=== PATIENT | male | born 1980 | race Caucasian/White ===

== ENCOUNTER 2019-06-08 21:14 | Day surgery (SDC) | payer SELFPAY ==
[2019-06-08] MEDS ORDERED: Ondansetron PF 4 MG/2 ML Vial ONE (21:41)
[2019-06-08 22:13] LABS: #Eosinphils 0.3 thou/uL (0.0-0.7); #Lymphocytes 1.9 thou/uL (1.20-3.40); #Monocytes 0.8 thou/uL (0.11-0.59); #Neutrophils 3.9 thou/uL (1.40-6.50); %Basophils 0.4 % (0.0-1.0); %Eosinophils 3.9 % (0.0-10.0); %Lymphocytes 27.2 % (21.0-51.0); %Monocytes 11.5 % (0.0-10.0); %Neutrophils 56.9 % (42.0-75.0); Mean Corpuscular HGB CONC 34.6 g/dL (32.0-36.0); Mean Corpuscular Hemoglobin 31.7 pg (27.0-31.0); Mean Corpuscular Volume 91.6 fL (78.0-98.0); Mean Platelet Volume 9.2 fL (7.4-10.4); Platelet Count 237 thou/uL (130-400); RBC Distribution Width 11.7 % (11.5-14.5); White Blood Cell (WBC) Count 6.8 thou/uL (4.8-10.8)
[2019-06-08 22:31] LABS: Anion Gap 13 mmol/L (10-20); BUN (Urea Nitrogen) 7 mg/dL (8.9-20.6); Calc. Creatinine Clearance 0 mL/min (70-130); Calcium 8.7 mg/dL (7.8-10.44); Carbon Dioxide 22 mmol/L (22-29); Chloride 110 mmol/L (98-107); Estimated GFR-MDRD Greater than 90; Glucose 97 mg/dL (70-105); Lipase 28 U/L (8-78); Potassium 3.8 mmol/L (3.5-5.1); Sodium 141 mmol/L (136-145)
[2019-06-08 22:58] LABS: ALT (SGPT) 20 U/L (8-55); AST (SGOT) 14 U/L (5-34); Alkaline Phosphatase 89 U/L (40-110); Bilirubin, Direct 0.2 mg/dL (0.1-0.3); Bilirubin, Total 0.3 mg/dL (0.2-1.2); Protein, Total 6.4 g/dL (6.0-8.3)
--- NOTE | 2019-06-08 23:18 | RAD ---
PORTABLE CHEST: 06/08/19 PROVIDED CLINICAL HISTORY: Evidence for esophageal foreign body. FINDINGS: Cardiac and mediastinal silhouette is within normal limits. Lungs appear clear. No pleural fluid or p neumothorax apparent. No radiopaque foreign body is evident overlying the visualized course of the ae rodigestive tract. IMPRESSION: No evidence for an acute cardiopulmonary process. POS: CRISTAL
--- NOTE | 2019-06-08 23:20 | RAD ---
TWO VIEWS SOFT TISSUE NECK: 06/08/19 PROVIDED CLINICAL HISTORY: Evidence for esophageal obstruction. FINDINGS: The epiglottis and aryepiglottic folds appear normal. There is no prevertebral soft tissue swelling. There is no radiographic apparent foreign body overlying the visualized course of the aerodigestive t ract. The osseous structures appear unremarkable. IMPRESSION: No evidence for an acute process. POS: CRISTAL
[2019-06-09] MEDS ORDERED: Fentanyl 100 MCG/2 ML VIAL ONE (00:52)
[2019-06-09] MEDS ORDERED: Labetalol HCl 100 MG/20 ML VIAL ONE (01:18)
--- NOTE | 2019-06-09 01:29 | CON ---
DATE OF CONSULTATION: 06/09/2019 REASON FOR CONSULTATION: Esophageal food bolus. HISTORY OF PRESENT ILLNESS: Mario Rushing is a 38-year-old man who reports no past medical or surgical history, takes no medications, and has no chronic symptomatology. He says that for the past couple of days, he has had dysphagia to solids, to the point that he is unable to tolerate any oral intake for 2 days. Any solid or liquid that he takes will be regurgitated back up. He has a constant discomfort in the chest associated with this. The last thing he was really able to get down was some steak. In the ER, he was unresponsive to a trial of glucagon. He says this has never really happened before. He denies any family history of GI malignancy. He has no other symptoms such as fever or cough. REVIEW OF SYSTEMS: Full review of systems including constitutional, head, eyes, ears, nose, throat, GI, , cardiovascular, respiratory, musculoskeletal, neurologic systems is negative except as noted in the HPI. PAST MEDICAL HISTORY: None. PAST SURGICAL HISTORY: None. ALLERGIES: NO KNOWN DRUG ALLERGIES. OUTPATIENT MEDICATIONS: None. FAMILY HISTORY: Negative for GI malignancy. SOCIAL HISTORY: He will drink alcohol occasionally. He denies any smoking or drug use. He lives here in [place]. PHYSICAL EXAMINATION: VITAL SIGNS: Blood pressure 146/104, pulse 80. GENERAL: A 38-year-old man, sitting up in bed comfortably, in no acute distress. SKIN: No jaundice. No rashes were palpable. He has several tattoos. EYES: No scleral icterus. Extraocular movements intact. ENT: Mucous membranes moist. No oral lesions. LYMPH: No submandibular or supraclavicular lymphadenopathy. NECK: Thyroid nontender to palpation. HEART: Regular rate and rhythm. LUNGS: Clear to auscultation bilaterally. ABDOMEN: Soft, nontender to palpation throughout. EXTREMITIES: No peripheral edema. VESSELS: Radial pulses 2+ bilaterally. NEURO: Cranial nerves 2 through 12 intact bilaterally. No focal deficits. LABORATORY STUDIES: None. ASSESSMENT AND PLAN: Suspected esophageal foreign body obstruction. This has been going on for the past couple of days, with no preceding symptoms of dysphagia or heartburn to be noted. I discussed in detail with the patient that we need to proceed with esophagogastroduodenoscopy urgently this evening to relieve the obstruction and also assess any underlying pathology such as esophageal stricture, esophageal ring, esophagitis, rule out neoplastic process. Depending on findings, we may attempt esophageal biopsies, would less likely perform esophageal dilation in the context of an acute food impaction. He may require acid suppression afterward, but I suspect he will likely be able to be discharged home following the procedure. The patient understands and agrees with the plan. Job ID: [id number]
--- NOTE | 2019-06-09 01:55 | OP ---
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 PROCEDURE PERFORMED: Esophagogastroduodenoscopy with foreign body removal and biopsies. INDICATION: Esophageal food bolus impaction. MEDICATIONS: See Anesthesia record. FINDINGS: After discussion of the risks, benefits, and alternatives of the procedure, informed consent was obtained and witnessed. Pre-endoscopic cardiopulmonary examination was satisfactory. Time-out was performed before sedation was achieved. Sedation was achieved with Anesthesia assistance in the endoscopy unit. The patient was endotracheally intubated under general anesthesia. He was placed in the left lateral decubitus position. A Pentax adult upper endoscope was placed into the oropharynx and passed through the cricopharyngeus under direct visualization. In the distal esophagus, there was a large amount of food impacted. This was all meat, appearing to represent steak. I used the rat-tooth forceps to remove all of the meat from the esophagus in piecemeal fashion. In this manner, the entire esophagus was cleared of food contents. Examination of the esophagus demonstrated diffuse edema and friability, small caliber esophagus, with circumferential folds, all suggestive of eosinophilic esophagitis. There was no discrete stricture, though there was significant inflammation and maceration in the very distal esophagus just above the GE junction at 43 cm. I obtained biopsies from the midesophagus to evaluate for possible eosinophilic esophagitis. I did not perform any esophageal dilation. The endoscope was advanced into the stomach. Forward and retroflexed views of the entire gastric mucosa were obtained. There was some retained food in the gastric fundus, but the gastric mucosa otherwise appears normal, just a bit of mild erythema in the gastric antrum. The endoscope was advanced through the pylorus and into the first and second portions of the duodenum, which appeared normal. The upper endoscope was completely withdrawn and the patient allowed to recover. The patient tolerated the procedure well. There were no immediate postprocedure complications. IMPRESSION: 1. Meat bolus in the distal esophagus, completely removed. 2. Diffuse esophageal edema, friability, and small caliber esophagus with circumferential folds, all suggestive of eosinophilic esophagitis, with mid esophageal biopsies obtained. 3. Otherwise normal esophagogastroduodenoscopy. RECOMMENDATIONS: 1. Clear liquid diet for 2 days, then advance diet slowly as tolerated. 2. Chew food thoroughly. 3. Pantoprazole 40 mg p.o. b.i.d. Prescription given to the patient. 4. Follow up results of esophageal biopsies. 5. Follow up in [facility] for a telehealth visit in a couple of weeks. Job ID: [id number]
[2019-06-09] MEDS ORDERED: PROPOFOL 200 MG/20 ML VIAL ONE (11:51)
[2019-06-09] MEDS ORDERED: Succinylcholine Chloride 20 MG/ML 10 ml SYRINGE FS ONE (11:51)
[2019-06-09] MEDS ORDERED: diphenhydrAMINE 50 MG/ML VIAL ONE (11:51)
[2019-06-09] MEDS ORDERED: Ondansetron PF 4 MG/2 ML Vial ONE (11:51)
[2019-06-09] MEDS ORDERED: Dexamethasone 20 MG/5 ML VIAL ONE (11:51)
== END 2019-06-09 02:28 | disposition home or self-care (01) ==
LOC: ERS 21:14 → SDC/OP 06-09 00:38
PROVIDERS: ATTEND Internal Medicine
PROC: 0DB28ZX Excision of Middle Esophagus, Via Natural or Artificial Opening Endoscopic, Diagnostic (ICD-10-PCS; principal; 2019-06-09)
PROC: 0DC38ZZ Extirpation of Matter from Lower Esophagus, Via Natural or Artificial Opening Endoscopic (ICD-10-PCS; principal; 2019-06-09)
DX: T18.128A Food in esophagus causing other injury, initial encounter (principal); K20.8 Other esophagitis
CPT/HCPCS: 70360; 71045; 80048; 80076; 83690; 85025; 88305; 88312; 88313; 96361; 96374; 96375; J1100; J1200; J1610; J2405; J2704; J3010

== ENCOUNTER 2020-06-15 16:13 | Emergency (ER) | payer SELFPAY | END 2020-06-15 16:50 | disposition home or self-care (01) | LOC: ERS 16:13 | DX: K02.9 Dental caries, unspecified (principal); K03.81 Cracked tooth | CPT/HCPCS: 99283 ==

== ENCOUNTER 2020-06-22 18:24 | Emergency (ER) | payer SELFPAY ==
[2020-06-22 19:03] LABS: #Basophils 0.1 thou/uL (0.0-0.2); #Eosinphils 0.2 thou/uL (0.0-0.7); #Lymphocytes 2.2 thou/uL (1.20-3.40); #Monocytes 0.7 thou/uL (0.11-0.59); #Neutrophils 4.3 thou/uL (1.40-6.50); %Basophils 1.6 % (0.0-1.0); %Eosinophils 3.3 % (0.0-10.0); %Lymphocytes 29.5 % (21.0-51.0); %Neutrophils 56.6 % (42.0-75.0); Hemoglobin 15.1 g/dL (14.0-18.0); Mean Corpuscular HGB CONC 33.5 g/dL (32.0-36.0); Mean Corpuscular Hemoglobin 31.5 pg (27.0-31.0); Mean Platelet Volume 8.4 fL (7.4-10.4); Platelet Count 232 thou/uL (130-400); RBC Distribution Width 13.3 % (11.5-14.5); White Blood Cell (WBC) Count 7.6 thou/uL (4.8-10.8)
[2020-06-22 19:05] LABS: Bacteria/HPF None Seen HPF (None Seen); Bilirubin Negative (Negative); Blood, Urine 1+ (Negative); Clarity Clear (Clear); Glucose, Urine (Dipstick) Normal (Negative); Ketone, Urine Negative (Negative); Leukocyte Negative Leu/uL (Negative); Nitrite Negative (Negative); Protein, Urine (Dipstick) Negative (Neg-Trace); Specific Gravity, Urine 1.007 (1.002-1.036); Squamous Epithelial None Seen HPF (0-3); Urobilinogen Normal mg/dL (Less than 2); WBC/HPF 0-3 HPF (0-3); pH, Urine 5.5 (5.0-9.0)
[2020-06-22 19:41] LABS: ALT (SGPT) 48 U/L (8-55); AST (SGOT) 38 U/L (5-34); Albumin 4.1 g/dL (3.5-5.0); Alkaline Phosphatase 84 U/L (40-110); Anion Gap 18 mmol/L (10-20); BUN (Urea Nitrogen) 11 mg/dL (8.9-20.6); Bilirubin, Total 0.3 mg/dL (0.2-1.2); Calc. Creatinine Clearance 0 mL/min (70-130); Calcium 9.7 mg/dL (7.8-10.44); Carbon Dioxide 19 mmol/L (22-29); Chloride 107 mmol/L (98-107); Globulin 3.4 g/dL (2.4-3.5); Glucose 98 mg/dL (70-105); Potassium 4.5 mmol/L (3.5-5.1); Protein, Total 7.5 g/dL (6.0-8.3); Sodium 139 mmol/L (136-145)
[2020-06-22] MEDS ORDERED: cefTRIAXone\\ROCEPHIN 500 MG VIAL ONE (21:13)
[2020-06-22] MEDS ORDERED: Lidocaine 1% PF 5 ML VIAL ONE (21:13)
== END 2020-06-22 21:40 | disposition home or self-care (01) ==
LOC: ERS 18:24
DX: E86.0 Dehydration (principal); Z20.2 Contact with and (suspected) exposure to infections with a predominantly sexual mode of transmission; I10 Essential (primary) hypertension; F17.220 Nicotine dependence, chewing tobacco, uncomplicated
CPT/HCPCS: 36415; 80053; 81003; 81015; 82550; 85025; 96372; 99284; J0696

== ENCOUNTER 2020-08-07 02:37 | Emergency (ER) | payer SELFPAY | END 2020-08-07 05:36 | disposition home or self-care (01) | LOC: ERS 02:37 | DX: R05 Cough (principal); I10 Essential (primary) hypertension; F17.220 Nicotine dependence, chewing tobacco, uncomplicated | CPT/HCPCS: 71045 ==

== ENCOUNTER 2020-11-03 10:01 | Emergency (ER) | payer SELFPAY ==
[2020-11-03 19:54] LABS: SARS-CoV-2 PCR by NAA Not Detected (NotDetected)
== END 2020-11-03 10:40 | disposition home or self-care (01) ==
LOC: ERS 10:01
DX: Z20.822 Contact with and (suspected) exposure to COVID-19 (principal)
CPT/HCPCS: 99283; U0003; U0005

== ENCOUNTER 2021-01-02 15:04 | Emergency (ER) | payer BC, SELFPAY ==
[2021-01-02 15:55] LABS: #Eosinphils 0.1 thou/uL (0.0-0.7); #Lymphocytes 0.8 thou/uL (1.20-3.40); #Monocytes 0.5 thou/uL (0.11-0.59); #Neutrophils 5.3 thou/uL (1.40-6.50); %Basophils 0.3 % (0.0-1.0); %Eosinophils 0.7 % (0.0-10.0); %Lymphocytes 12.6 % (21.0-51.0); %Monocytes 6.8 % (0.0-10.0); %Neutrophils 79.6 % (42.0-75.0); Hemoglobin 16.3 g/dL (14.0-18.0); Mean Corpuscular HGB CONC 33.9 g/dL (32.0-36.0); Mean Corpuscular Hemoglobin 32.8 pg (27.0-31.0); Mean Corpuscular Volume 96.6 fL (78.0-98.0); Platelet Count 176 thou/uL (130-400); Red Blood Cell (RBC) Count 4.98 mill/uL (4.70-6.10); White Blood Cell (WBC) Count 6.7 thou/uL (4.8-10.8)
[2021-01-02 16:09] LABS: Acetaminophen Less than 6.0 mcg/mL (10.0-30.0); Alcohol Less than 10 mg/dL (Less than 10); CK (CPK) 70 U/L (30-200); Salicylate Less than 8.0 mg/dL (15.0-30.0)
[2021-01-02 16:11] LABS: ALT (SGPT) 17 U/L (8-55); AST (SGOT) 13 U/L (5-34); Albumin 4.3 g/dL (3.5-5.0); Alkaline Phosphatase 104 U/L (40-110); Anion Gap 15 mmol/L (10-20); BUN (Urea Nitrogen) 13 mg/dL (8.9-20.6); Bilirubin, Total 2.4 mg/dL (0.2-1.2); Calc. Creatinine Clearance 0 mL/min (70-130); Calcium 9.2 mg/dL (7.8-10.44); Carbon Dioxide 20 mmol/L (22-29); Chloride 105 mmol/L (98-107); Globulin 2.8 g/dL (2.4-3.5); Glucose 112 mg/dL (70-105); Potassium 3.4 mmol/L (3.5-5.1); Protein, Total 7.1 g/dL (6.0-8.3); Sodium 137 mmol/L (136-145)
[2021-01-02] MEDS ORDERED: Potassium Chloride 20 MEQ TAB ONE (16:26)
[2021-01-02 18:24] LABS: Bacteria/HPF None Seen HPF (None Seen); Bilirubin Negative (Negative); Blood, Urine Negative (Negative); Clarity Clear (Clear); Glucose, Urine (Dipstick) Normal (Negative); Ketone, Urine 20 mg/dL (Negative); Leukocyte Negative Leu/uL (Negative); Nitrite Negative (Negative); Protein, Urine (Dipstick) 30 mg/dL (Neg-Trace); RBC/HPF 0-3 HPF (0-3); Squamous Epithelial 0-3 HPF (0-3); WBC/HPF 0-3 HPF (0-3); pH, Urine 6.5 (5.0-9.0)
[2021-01-02 18:30] LABS: Amphetamine Detected (NotDetected); Barbiturates Screen Not Detected (NotDetected); Benzodiazepine Screen Not Detected (NotDetected); Cocaine Metabolite Screen Not Detected (NotDetected); Methadone Not Detected (NotDetected); Methamphetamine Detected (NotDetected); Opiate Screen Not Detected (NotDetected); Oxycodone Screen Not Detected (NotDetected); Phencyclidine (PCP) Not Detected (NotDetected); THC/Cannabinoid Screen Detected (NotDetected); Tricyclic Screen Not Detected (NotDetected)
[2021-01-02 21:57] LABS: Acetaminophen Less than 6.0 mcg/mL (10.0-30.0)
[2021-01-03] MEDS ORDERED: Acetaminophen 325 MG TAB ONE (07:18)
[2021-01-03 11:17] LABS: SARS-CoV-2 NAA Rapid Test Not Detected (NotDetected)
== END 2021-01-03 18:57 ==
LOC: ERS 15:04
DX: T50.902A Poisoning by unspecified drugs, medicaments and biological substances, intentional self-harm, initial encounter (principal); E87.6 Hypokalemia; E80.7 Disorder of bilirubin metabolism, unspecified; E87.2 Acidosis; R00.0 Tachycardia, unspecified; I10 Essential (primary) hypertension; Z20.822 Contact with and (suspected) exposure to COVID-19
CPT/HCPCS: 36415; 51701; 71045; 80053; 80143; 80306; 80307; 81003; 81015; 82248; 82550; 84439; 84443; 85025; 85379; 93005; U0002

== ENCOUNTER 2021-01-19 19:14 | Emergency (ER) | payer OTHER, SELFPAY ==
[2021-01-19 20:04] LABS: Bilirubin Negative (Negative); Blood, Urine Negative (Negative); Clarity Clear (Clear); Glucose, Urine (Dipstick) Normal (Negative); Ketone, Urine Negative (Negative); Leukocyte Negative Leu/uL (Negative); Nitrite Negative (Negative); Protein, Urine (Dipstick) Negative (Neg-Trace); Specific Gravity, Urine 1.011 (1.002-1.036); Urobilinogen Normal mg/dL (Less than 2)
[2021-01-19 20:07] LABS: #Eosinphils 0.3 thou/uL (0.0-0.7); #Lymphocytes 2.1 thou/uL (1.20-3.40); #Monocytes 0.5 thou/uL (0.11-0.59); #Neutrophils 3.6 thou/uL (1.40-6.50); %Basophils 0.6 % (0.0-1.0); %Eosinophils 4.2 % (0.0-10.0); %Lymphocytes 32.5 % (21.0-51.0); %Monocytes 7.8 % (0.0-10.0); %Neutrophils 54.9 % (42.0-75.0); Hemoglobin 15.4 g/dL (14.0-18.0); Mean Corpuscular HGB CONC 34.1 g/dL (32.0-36.0); Mean Corpuscular Hemoglobin 32.8 pg (27.0-31.0); Mean Corpuscular Volume 96.2 fL (78.0-98.0); Mean Platelet Volume 8.4 fL (7.4-10.4); Platelet Count 240 thou/uL (130-400); Red Blood Cell (RBC) Count 4.69 mill/uL (4.70-6.10); White Blood Cell (WBC) Count 6.6 thou/uL (4.8-10.8)
[2021-01-19 20:26] LABS: ALT (SGPT) 32 U/L (8-55); AST (SGOT) 13 U/L (5-34); Albumin 3.9 g/dL (3.5-5.0); Alkaline Phosphatase 86 U/L (40-110); Anion Gap 13 mmol/L (10-20); BUN (Urea Nitrogen) 10 mg/dL (8.9-20.6); Bilirubin, Total 0.4 mg/dL (0.2-1.2); Calc. Creatinine Clearance 0 mL/min (70-130); Calcium 9.6 mg/dL (7.8-10.44); Carbon Dioxide 24 mmol/L (22-29); Chloride 106 mmol/L (98-107); Globulin 3.1 g/dL (2.4-3.5); Glucose 120 mg/dL (70-105); Lipase 32 U/L (8-78); Sodium 139 mmol/L (136-145)
[2021-01-19] MEDS ORDERED: Ondansetron ODT 4 MG TAB ONE (21:04)
== END 2021-01-19 21:28 | disposition home or self-care (01) ==
LOC: ERS 19:14
DX: R10.13 Epigastric pain (principal); I10 Essential (primary) hypertension; R10.9 Unspecified abdominal pain; F17.210 Nicotine dependence, cigarettes, uncomplicated
CPT/HCPCS: 36415; 74176; 80053; 81003; 83690; 85025; 96372; J0500; Q0162

== ENCOUNTER 2021-01-25 14:26 | Emergency (ER) | payer SELFPAY | END 2021-01-25 16:41 | disposition home or self-care (01) | LOC: ERS 14:26 | DX: L03.313 Cellulitis of chest wall (principal); F17.210 Nicotine dependence, cigarettes, uncomplicated; Z79.899 Other long term (current) drug therapy | CPT/HCPCS: 99283 ==

== ENCOUNTER 2021-04-10 19:38 | Emergency (ER) | payer BC, SELFPAY ==
[2021-04-10] MEDS ORDERED: Lorazepam 1 MG TAB ONE (19:56)
[2021-04-10] MEDS ORDERED: hydrOXYzine 25 MG TAB ONE (19:57)
[2021-04-10 20:19] LABS: #Basophils 0.1 thou/uL (0.0-0.2); #Lymphocytes 1.4 thou/uL (1.20-3.40); #Monocytes 0.8 thou/uL (0.11-0.59); #Neutrophils 4.7 thou/uL (1.40-6.50); %Basophils 0.9 % (0.0-1.0); %Eosinophils 0.6 % (0.0-10.0); %Lymphocytes 20.2 % (21.0-51.0); %Monocytes 10.8 % (0.0-10.0); %Neutrophils 67.5 % (42.0-75.0); Mean Corpuscular HGB CONC 32.9 g/dL (32.0-36.0); Mean Corpuscular Hemoglobin 32.5 pg (27.0-31.0); Mean Corpuscular Volume 98.5 fL (78.0-98.0); Mean Platelet Volume 8.1 fL (7.4-10.4); Platelet Count 247 thou/uL (130-400); RBC Distribution Width 13.1 % (11.5-14.5); Red Blood Cell (RBC) Count 4.93 mill/uL (4.70-6.10)
[2021-04-10 20:23] LABS: Amphetamine Detected (NotDetected); Barbiturates Screen Not Detected (NotDetected); Benzodiazepine Screen Not Detected (NotDetected); Cocaine Metabolite Screen Not Detected (NotDetected); Methadone Not Detected (NotDetected); Methamphetamine Detected (NotDetected); Opiate Screen Not Detected (NotDetected); Oxycodone Screen Not Detected (NotDetected); Phencyclidine (PCP) Not Detected (NotDetected); THC/Cannabinoid Screen Detected (NotDetected); Tricyclic Screen Not Detected (NotDetected)
[2021-04-10 20:39] LABS: Acetaminophen Less than 6.0 mcg/mL (10.0-30.0); Alcohol Less than 10 mg/dL (Less than 10); CK (CPK) 108 U/L (30-200); Salicylate Less than 8.0 mg/dL (15.0-30.0)
[2021-04-10 20:40] LABS: ALT (SGPT) 17 U/L (8-55); AST (SGOT) 12 U/L (5-34); Albumin 4.4 g/dL (3.5-5.0); Alkaline Phosphatase 92 U/L (40-110); Anion Gap 15 mmol/L (10-20); BUN (Urea Nitrogen) 13 mg/dL (8.9-20.6); Bilirubin, Total 2.2 mg/dL (0.2-1.2); Calc. Creatinine Clearance 0 mL/min (70-130); Calcium 9.6 mg/dL (7.8-10.44); Carbon Dioxide 20 mmol/L (22-29); Chloride 104 mmol/L (98-107); Glucose 99 mg/dL (70-105); Potassium 3.7 mmol/L (3.5-5.1); Protein, Total 7.4 g/dL (6.0-8.3); Sodium 135 mmol/L (136-145)
== END 2021-04-10 23:11 | disposition home or self-care (01) ==
LOC: ERS 19:38
DX: F15.10 Other stimulant abuse, uncomplicated (principal); F17.210 Nicotine dependence, cigarettes, uncomplicated; Z79.899 Other long term (current) drug therapy
CPT/HCPCS: 36415; 71045; 80053; 80306; 80307; 82550; 84443; 85025; 93005

== ENCOUNTER 2022-04-15 02:18 | Emergency (ER) | payer SELFPAY ==
[2022-04-15] MEDS ORDERED: OXcarbazepine 150 MG TAB PO SCH (02:45)
[2022-04-15 02:49] LABS: #Eosinphils 0.1 thou/uL (0.0-0.7); #Lymphocytes 2.1 thou/uL (1.20-3.40); #Neutrophils 6.4 thou/uL (1.40-6.50); %Basophils 0.4 % (0.0-1.0); %Eosinophils 0.6 % (0.0-10.0); %Lymphocytes 21.9 % (21.0-51.0); %Monocytes 10.4 % (0.0-10.0); %Neutrophils 66.7 % (42.0-75.0); Hemoglobin 16.3 g/dL (14.0-18.0); Mean Corpuscular HGB CONC 33.5 g/dL (32.0-36.0); Mean Corpuscular Hemoglobin 32.6 pg (27.0-31.0); Mean Corpuscular Volume 97.2 fl (78.0-98.0); Mean Platelet Volume 9.2 fL (7.4-10.4); Platelet Count 200 10x3/uL (130-400); RBC Distribution Width 12.7 % (11.5-14.5); White Blood Cell (WBC) Count 9.5 10x3/uL (4.8-10.8)
[2022-04-15] MEDS ORDERED: Benztropine 1 MG TAB PO SCH (03:00)
[2022-04-15 03:13] LABS: ALT (SGPT) 32 U/L (8-55); AST (SGOT) 22 U/L (5-34); Acetaminophen Less than 10.0 mcg/mL (10.0-30.0); Albumin 4.8 g/dL (3.5-5.0); Alcohol Less than 10 mg/dL (Less than 10); Alkaline Phosphatase 114 U/L (40-110); Anion Gap 17 mmol/L (10-20); BUN (Urea Nitrogen) 22 mg/dL (8.9-20.6); Bilirubin, Total 1.3 mg/dL (0.2-1.2); Calc. Creatinine Clearance 0 mL/min (70-130); Calcium 10.4 mg/dL (7.8-10.44); Carbon Dioxide 24 mmol/L (22-29); Chloride 99 mmol/L (98-107); Estimated GFR 115; Globulin 3.6 g/dL (2.4-3.5); Glucose 105 mg/dL (70-105); Potassium 3.8 mmol/L (3.5-5.1); Protein, Total 8.4 g/dL (6.0-8.3); Salicylate Less than 8.0 mg/dL (15.0-30.0); Sodium 136 mmol/L (136-145)
[2022-04-15] MEDS ORDERED: risperiDONE 1 MG TAB ONE (04:04)
[2022-04-15] MEDS ORDERED: hydrOXYzine 25 MG TAB ONE ×2 (04:04→12:04)
[2022-04-15 04:31] LABS: Amphetamine Detected (NotDetected); Barbiturates Screen Not Detected (NotDetected); Benzodiazepine Screen Detected (NotDetected); Cocaine Metabolite Screen Not Detected (NotDetected); Methadone Not Detected (NotDetected); Methamphetamine Detected (NotDetected); Opiate Screen Not Detected (NotDetected); Oxycodone Screen Not Detected (NotDetected); Phencyclidine (PCP) Not Detected (NotDetected); THC/Cannabinoid Screen Detected (NotDetected); Tricyclic Screen Not Detected (NotDetected)
[2022-04-15 04:59] LABS: Free T4 (Free Thyroxine) 1.4 ng/dL (0.70-1.48)
[2022-04-15] MEDS ORDERED: Ondansetron ODT 4 MG TAB SL PRN (05:45)
[2022-04-15] MEDS ORDERED: Acetaminophen 325 MG TAB PO PRN (05:45)
[2022-04-15] MEDS ORDERED: Sodium Chloride 0.9% 1,000 ML IV SCH (05:45)
[2022-04-15] MEDS ORDERED: Ondansetron PF 4 MG/2 ML Vial IVP PRN (05:45)
[2022-04-15 06:08] LABS: Bacteria/HPF None Seen HPF (None Seen); Bilirubin Negative (Negative); Blood, Urine Negative (Negative); Clarity Clear (Clear); Glucose, Urine (Dipstick) Normal (Negative); Ketone, Urine 10 mg/dL (Negative); Leukocyte Negative Leu/uL (Negative); Mucous/LPF 4+ LPF (<2+); Nitrite Negative (Negative); Protein, Urine (Dipstick) 30 mg/dL (Neg-Trace); RBC/HPF 0-3 HPF (0-3); Specific Gravity, Urine 1.033 (1.002-1.036); Squamous Epithelial 0-3 HPF (0-3); Urobilinogen Normal mg/dL (Less than 2)
== END 2022-04-15 14:45 ==
LOC: ERS 02:18
DX: F19.10 Other psychoactive substance abuse, uncomplicated (principal); E05.90 Thyrotoxicosis, unspecified without thyrotoxic crisis or storm; R45.851 Suicidal ideations; F17.210 Nicotine dependence, cigarettes, uncomplicated; Z79.899 Other long term (current) drug therapy
CPT/HCPCS: 36415; 80053; 80306; 80307; 81003; 81015; 82550; 84439; 84443; 84481; 85025; 93005; J7050

== ENCOUNTER 2022-07-02 21:32 | Emergency (ER) | payer SELFPAY ==
[2022-07-02] MEDS ORDERED: LORazepam 2 MG/ML SYR.(CARPUJECT) ONE (22:09)
[2022-07-02 22:35] LABS: #Basophils 0.1 thou/uL (0.0-0.2); #Eosinphils 0.2 thou/uL (0.0-0.7); #Lymphocytes 2.2 thou/uL (1.20-3.40); #Monocytes 0.5 thou/uL (0.11-0.59); #Neutrophils 2.3 thou/uL (1.40-6.50); %Basophils 1.2 % (0.0-1.0); %Eosinophils 3.3 % (0.0-10.0); %Lymphocytes 41.8 % (21.0-51.0); %Monocytes 10.1 % (0.0-10.0); %Neutrophils 43.7 % (42.0-75.0); Hemoglobin 13.7 g/dL (14.0-18.0); Mean Corpuscular HGB CONC 32.3 g/dL (32.0-36.0); Mean Corpuscular Hemoglobin 31.5 pg (27.0-31.0); Mean Corpuscular Volume 97.4 fl (78.0-98.0); Mean Platelet Volume 9.5 fL (7.4-10.4); Platelet Count 156 10x3/uL (130-400); RBC Distribution Width 12.3 % (11.5-14.5); Red Blood Cell (RBC) Count 4.36 mill/uL (4.70-6.10); White Blood Cell (WBC) Count 5.3 10x3/uL (4.8-10.8)
[2022-07-02 22:57] LABS: ALT (SGPT) 26 U/L (8-55); AST (SGOT) 17 U/L (5-34); Albumin 3.4 g/dL (3.5-5.0); Alkaline Phosphatase 82 U/L (40-110); Anion Gap 13 mmol/L (10-20); BUN (Urea Nitrogen) 4 mg/dL (8.9-20.6); Bilirubin, Total 0.3 mg/dL (0.2-1.2); Calc. Creatinine Clearance 0 mL/min (70-130); Calcium 8.2 mg/dL (7.8-10.44); Carbon Dioxide 22 mmol/L (22-29); Chloride 114 mmol/L (98-107); Estimated GFR 89; Globulin 2.3 g/dL (2.4-3.5); Glucose 96 mg/dL (70-105); Lipase 45 U/L (8-78); Potassium 3.8 mmol/L (3.5-5.1); Protein, Total 5.7 g/dL (6.0-8.3); Sodium 145 mmol/L (136-145)
[2022-07-02 23:01] LABS: Acetaminophen Less than 10.0 mcg/mL (10.0-30.0); Alcohol 165 mg/dL (Less than 10); Salicylate Less than 8.0 mg/dL (15.0-30.0)
[2022-07-02 23:12] LABS: Bilirubin Negative (Negative); Blood, Urine Negative (Negative); Clarity Clear (Clear); Glucose, Urine (Dipstick) Normal (Negative); Ketone, Urine Negative (Negative); Leukocyte Negative Leu/uL (Negative); Nitrite Negative (Negative); Protein, Urine (Dipstick) Negative (Neg-Trace); Specific Gravity, Urine 1.011 (1.002-1.036); Urobilinogen Normal mg/dL (Less than 2); pH, Urine 5.5 (5.0-9.0)
[2022-07-02 23:19] LABS: Amphetamine Not Detected (NotDetected); Barbiturates Screen Not Detected (NotDetected); Benzodiazepine Screen Detected (NotDetected); Cocaine Metabolite Screen Not Detected (NotDetected); Methadone Not Detected (NotDetected); Methamphetamine Not Detected (NotDetected); Opiate Screen Not Detected (NotDetected); Oxycodone Screen Not Detected (NotDetected); Phencyclidine (PCP) Not Detected (NotDetected); THC/Cannabinoid Screen Detected (NotDetected); Tricyclic Screen Not Detected (NotDetected)
== END 2022-07-02 23:57 | disposition home or self-care (01) ==
LOC: ERS 21:32
DX: R55 Syncope and collapse (principal); E86.0 Dehydration; F10.239 Alcohol dependence with withdrawal, unspecified; F17.210 Nicotine dependence, cigarettes, uncomplicated; Y90.6 Blood alcohol level of 120-199 mg/100 ml
CPT/HCPCS: 36415; 71045; 74176; 80053; 80306; 80307; 81003; 82550; 83605; 83690; 84484; 85025; 93005; 96361; 96374; J2060

== ENCOUNTER 2022-10-08 13:55 | Emergency (ER) | payer OTHER, SELFPAY ==
[2022-10-08 15:56] LABS: #Eosinphils 0.2 thou/uL (0.0-0.7); #Monocytes 0.5 thou/uL (0.11-0.59); #Neutrophils 3.9 thou/uL (1.40-6.50); %Basophils 0.5 % (0.0-1.0); %Eosinophils 3.2 % (0.0-10.0); %Lymphocytes 29.1 % (21.0-51.0); %Monocytes 7.7 % (0.0-10.0); %Neutrophils 59.2 % (42.0-75.0); Hematocrit 37.4 % (42.0-52.0); Hemoglobin 13.2 g/dL (14.0-18.0); Mean Corpuscular HGB CONC 35.3 g/dL (32.0-36.0); Mean Corpuscular Hemoglobin 30.6 pg (27.0-31.0); Mean Corpuscular Volume 86.8 fl (78.0-98.0); Mean Platelet Volume 10.6 fL (7.4-10.4); Platelet Count 233 10x3/uL (130-400); RBC Distribution Width 13.9 % (11.5-14.5); Red Blood Cell (RBC) Count 4.31 mill/uL (4.70-6.10); White Blood Cell (WBC) Count 6.6 10x3/uL (4.8-10.8)
[2022-10-08 16:18] LABS: ALT (SGPT) 19 U/L (8-55); AST (SGOT) 14 U/L (5-34); Albumin 4.4 g/dL (3.5-5.0); Alkaline Phosphatase 86 U/L (40-110); Anion Gap 10 mmol/L (10-20); BUN (Urea Nitrogen) 10 mg/dL (8.9-20.6); Bilirubin, Total 0.8 mg/dL (0.2-1.2); Calc. Creatinine Clearance 0 mL/min (70-130); Calcium 9.5 mg/dL (7.8-10.44); Carbon Dioxide 24 mmol/L (22-29); Chloride 107 mmol/L (98-107); Estimated GFR 112; Globulin 2.9 g/dL (2.4-3.5); Glucose 89 mg/dL (70-105); Potassium 4.4 mmol/L (3.5-5.1); Protein, Total 7.3 g/dL (6.0-8.3); Sodium 137 mmol/L (136-145)
== END 2022-10-08 17:15 | disposition home or self-care (01) ==
LOC: ERS 13:55 → EEVIPCON 13:55 → ERS 17:15
DX: R13.10 Dysphagia, unspecified (principal); I10 Essential (primary) hypertension; Z87.891 Personal history of nicotine dependence
CPT/HCPCS: 36415; 70360; 80053; 84443; 85025; 93005

== ENCOUNTER 2022-10-26 10:14 | Outpatient (CLI) | payer OTHER | END 2022-10-26 10:15 | disposition home or self-care (01) | LOC: ULT 10:14 | PROVIDERS: ATTEND Nurse Practitioner Family | DX: E07.9 Disorder of thyroid, unspecified (principal); R94.6 Abnormal results of thyroid function studies | CPT/HCPCS: 76536 ==

== ENCOUNTER 2024-10-09 08:54 | Emergency (ER) | payer OTHER, SELFPAY ==
[2024-10-09] MEDS ORDERED: Ondansetron PF 4 MG/2 ML Vial ONE (10:12)
[2024-10-09] MEDS ORDERED: Pantoprazole 40 MG VIAL ONE (10:13)
[2024-10-09 10:20] LABS: #Basophils 0.03 10x3/uL (0.0-0.2); #Eosinophils 0.06 10x3/uL (0.0-0.7); #Monocytes 0.42 10x3/uL (0.11-0.59); #Neutrophils 3.90 10x3/uL (1.40-6.50); %Basophils 0.5 % (0.0-1.0); %Eosinophils 1.0 % (0.0-10.0); %Lymphocytes 22.9 % (21.0-51.0); %Monocytes 7.3 % (0.0-10.0); %Neutrophils 68.1 % (42.0-75.0); Hematocrit 43.0 % (42.0-52.0); Hemoglobin 15.0 g/dL (14.0-18.0); Mean Corpuscular Hemoglobin 34.4 pg (27.0-31.0); Mean Corpuscular Volume 98.6 fL (78.0-98.0); Platelet Count 138 10x3/uL (130-400); Red Blood Cell (RBC) Count 4.36 mill/uL (4.70-6.10); White Blood Cell (WBC) Count 5.73 10x3/uL (4.8-10.8)
[2024-10-09 10:34] LABS: ALT (SGPT) 116 U/L (Less than 45); AST (SGOT) 111 U/L (11-34); Albumin 4.4 g/dL (3.1-4.5); Alkaline Phosphatase 82 U/L (40-110); Anion Gap 19 mmol/L (10-20); BUN (Urea Nitrogen) 13 mg/dL (8.9-20.6); Bilirubin, Total 1.7 mg/dL (0.3-1.2); Calc. Creatinine Clearance 0 mL/min (70-130); Calcium 8.8 mg/dL (7.8-10.44); Carbon Dioxide 22 mmol/L (22-29); Chloride 102 mmol/L (98-107); Globulin 3.5 g/dL (2.4-3.5); Glucose 97 mg/dL (70-105); Potassium 3.9 mmol/L (3.5-5.1); Sodium 139 mmol/L (136-145)
[2024-10-09 10:43] LABS: Lipase 23 U/L (8-78)
[2024-10-09 10:47] LABS: Bacteria/HPF None Seen HPF (None Seen); CAUTI Indications for Culture Dysuria,urgency,freq; Glucose, Urine (Dipstick) Normal (Negative); Leukocyte Negative Leu/uL (Negative); Protein, Urine (Dipstick) 30 mg/dL (Neg-Trace); Specific Gravity, Urine 1.030 (1.002-1.036); WBC/HPF 0-3 HPF (0-3)
[2024-10-09 10:50] LABS: Sperm/HPF Rare HPF (None Seen)
[2024-10-09 10:51] LABS: Urine Culture Reflex No No
[2024-10-09 13:33] LABS: Acetaminophen Less than 10 mcg/mL (Less than 10); Salicylate Less than 8.0 mg/dL (Less than 8.0)
== END 2024-10-09 15:19 | disposition home or self-care (01) ==
LOC: ERS 08:54
DX: K29.20 Alcoholic gastritis without bleeding (principal); I10 Essential (primary) hypertension; E03.9 Hypothyroidism, unspecified; F17.210 Nicotine dependence, cigarettes, uncomplicated
CPT/HCPCS: 36415; 71045; 76705; 80307; 81001; 83605; 83690; 84443; 85025; 93005; 96361; 96374; 96375; J2405; J2470